=== PATIENT | female | born 1995 | race Native Hawaiian/Other Pacific Islander ===

== ENCOUNTER 2016-11-12 16:52 | Emergency (ER) | payer OTHER ==
[~2016-11-12] VITALS: Ht 154.9 cm; Wt 59.0 kg
[2016-11-12 19:20] VITALS: BP 132/86; TEMP 98.1
== END 2016-11-12 19:20 | disposition home or self-care (01) ==
LOC: ED 16:52
DX: N61.1 Abscess of the breast and nipple (principal)
CPT/HCPCS: 99282

== ENCOUNTER 2018-05-18 23:22 | Outpatient (CLI) | payer OTHER ==
[2018-05-19] MEDS ORDERED: DIGITEK0.25 MG PO (00:05)
== END 2018-05-18 23:36 | disposition short-term general hospital (02) ==
LOC: AMB 23:22
DX: R06.02 Shortness of breath (principal)
CPT/HCPCS: A0425; A0427

== ENCOUNTER 2018-05-18 23:51 | Emergency (ER) | payer OTHER ==
[~2018-05-18] VITALS: Ht 154.9 cm; Wt 81.6 kg
[2018-05-19] MEDS ORDERED: DIGITEK0.25 MG PO (00:05)
[2018-05-19 00:50] LABS: PLATELET COUNT 256 K/uL (152-353)
[2018-05-19 00:56] LABS: POTASSIUM 3.5 mmol/L (3.6-5.2); SODIUM 140 mmol/L (136-145)
[2018-05-19 01:54] VITALS: BP 121/66; TEMP 98.3
== END 2018-05-19 01:55 | disposition home or self-care (01) ==
LOC: ED 23:51
PROVIDERS: Emergency Medicine
DX: R07.89 Other chest pain (principal); R06.02 Shortness of breath
CPT/HCPCS: 80053; 82550; 82553; 83880; 84484; 85027; 93005; 99283

== ENCOUNTER 2018-09-01 12:40 | Outpatient (CLI) | payer OTHER ==
[~2018-09-01 12:40] MED LIST: DIGITEK0.25 MG PO
[2018-09-01] MEDS ORDERED: ASPIRIN 81 LOW81 MG PO (13:14)
[2018-09-01] MEDS ORDERED: FURO40TA93 PO (13:14)
[2018-09-01] MEDS ORDERED: SPIRONOLACT25 MG PO (13:15)
[2018-09-01] MEDS ORDERED: CARV12.5 PO (13:15)
== END 2018-09-01 12:49 | disposition short-term general hospital (02) ==
LOC: AMB 12:40
DX: R11.2 Nausea with vomiting, unspecified (principal); R20.0 Anesthesia of skin
CPT/HCPCS: A0425; A0427

== ENCOUNTER 2018-09-01 12:58 | Emergency (ER) | payer OTHER ==
[~2018-09-01] VITALS: Ht 152.4 cm; Wt 84.5 kg
[2018-09-01] MEDS ORDERED: FURO40TA93 PO (13:14)
[2018-09-01] MEDS ORDERED: ASPIRIN 81 LOW81 MG PO (13:14)
[2018-09-01] MEDS ORDERED: CARV12.5 PO (13:15)
[2018-09-01] MEDS ORDERED: SPIRONOLACT25 MG PO (13:15)
[2018-09-01 14:37] LABS: PLATELET COUNT 270 K/uL (152-353)
[2018-09-01 14:38] LABS: POTASSIUM 3.4 mmol/L (3.6-5.2); SODIUM 139 mmol/L (136-145)
[2018-09-01 15:18] VITALS: BP 101/63; TEMP 98.6
== END 2018-09-01 15:23 | disposition home or self-care (01) ==
LOC: ED 12:58
PROVIDERS: Emergency Medicine
DX: R11.2 Nausea with vomiting, unspecified (principal)
CPT/HCPCS: 80053; 81000; 82550; 83690; 84484; 84702; 85027; 93005; 99284

== ENCOUNTER 2019-05-18 16:53 | Emergency (ER) | payer OTHER ==
[~2019-05-18] VITALS: Ht 152.4 cm; Wt 89.8 kg
[~2019-05-18 16:53] MED LIST changes: +ASPIRIN 81 LOW81 MG PO; +CARV12.5 PO; +FURO40TA93 PO; +SPIRONOLACT25 MG PO
[2019-05-18 17:56] LABS: PLATELET COUNT 272 K/uL (152-353)
[2019-05-18 18:16] LABS: POTASSIUM 3.7 mmol/L (3.6-5.2)
[2019-05-18 20:45] VITALS: BP 121/67; TEMP 98.7
== END 2019-05-18 20:45 | disposition other institution (70) ==
LOC: ED 16:53
PROVIDERS: Hospitalist
DX: F25.1 Schizoaffective disorder, depressive type (principal); R45.851 Suicidal ideations
CPT/HCPCS: 80053; 80307; 80320; 80329; 81000; 81025; 85027; 87077; 87086; 87088; 87186; 96372; 99285; J0696